=== PATIENT | female | born 1970 ===

== ENCOUNTER 2019-07-30 16:30 | Outpatient (REF) | payer BC, SELFPAY ==
--- NOTE | 2019-07-30 16:30 | PAPFT_PTH ---
PATIENT: JOSUE THOMAS LOC: [facility] U#:[id number] AGE/SX: 48/F ROOM: RE07/30/[address]: Vanessa Tompkins : 1970 BED: DIS: 07/30/2019 SPEC #: [id number] RECD: 08/01/19 12:45 STATUS: MILA REQ #: [id number] NAV: 07/30/19 16:[address]: Vanessa Tompkins DEPT: [facility] Cytology RECD BY: Hui Avilez ENTERED: 08/01/19 12:46 SP TYPE: PAPFT OTHR DR: Sue Hewitt Tissues: 1 - CX/ENDOCX FOR PAP SMEARS Procedures: PAP THIN PREP/[facility] Screening Comments: [id number] (CHLAMYDIA/GC)
[2019-08-04 14:51] LABS: Chlamydia Result Negative; GC Result Negative; Specimen Description SEE COMMENTS
== END 2019-07-30 16:50 ==
LOC: LBN 16:30
PROVIDERS: PCP Nurse Practitioner Family; Visit Provider Naturopath
DX: Z11.3 Encounter for screening for infections with a predominantly sexual mode of transmission (principal); Z12.4 Encounter for screening for malignant neoplasm of cervix
CPT/HCPCS: 87491; 87591; 88142